=== PATIENT | female | born 1975 | race Caucasian/White ===

== ENCOUNTER 2016-09-16 00:45 | Emergency (ER) | payer OTHER, MEDICAID ==
[~2016-09-16] VITALS: Ht 165.1 cm; Wt 137.9 kg
[~2016-09-16 00:45] MED LIST: ALBU18 IN; LAMO150T2; TRAZ50T; VEN75XRT
[2016-09-16] MEDS ORDERED: methylPREDNISolone SOD SUCC 125 MG/2 ML VL IV ONE (02:30)
[2016-09-16] MEDS ORDERED: diphenhdrAMINE HCL 50 MG/1 ML VL IV ONE (02:30)
[2016-09-16 03:40] VITALS: BP 102/62
== END 2016-09-16 03:58 | disposition home or self-care (01) ==
LOC: ER 00:46
DX: J02.9 Acute pharyngitis, unspecified (principal); T78.40XA Allergy, unspecified, initial encounter
CPT/HCPCS: 96374; 96375; 99284; J1200; J2930

== ENCOUNTER 2017-05-24 08:54 | Emergency (ER) | payer OTHER, MEDICAID ==
[~2017-05-24] VITALS: Ht 162.6 cm; Wt 132.0 kg
[~2017-05-24 08:54] MED LIST changes: +ATOR20TA PO; +CHOL20007 PO; +GEMF600T3 PO; +GLIP-116 PO; +HYDR-4663 PO; -LAMO150T2; +LISI-646 PO; +LITH300T5 PO; +PAR20T PO; -VEN75XRT
[2017-05-24] MEDS ORDERED: SODIUM CHLORIDE 0.9% 1,000 ML IV ONE (09:25)
[2017-05-24 09:31] LABS: Urine Bilirubin Negative (Negative); Urine Blood Negative /uL (Negative); Urine Color Yellow (Yellow); Urine Glucose 3+ mg/dL (Normal); Urine Ketone 1+ (Negative); Urine Mucus FEW (None Seen); Urine Nitrite Negative (Negative); Urine RBC 1 /hpf (0 - 4); Urine Squamous Epithelial Cell MOD /hpf (<5); Urine Urobilinogen Normal (Negative); Urine pH 5.5 (5.0-8.0)
[2017-05-24 09:33] LABS: Eosinophils # (auto) 0.3 uL; Hemoglobin 13.5 g/dL (12.2-16.2); Lymphocytes # (auto) 2.7 uL; Mean Platelet Volume 6.7 fL (6.9-10.8); Monocytes # (auto) 0.7 uL; Monocytes % (auto) 5.2 % (0.0-12.0)
[2017-05-24 09:34] LABS: Basophils # (auto) 0 uL; Basophils % (auto) 0.3 % (0.0-2.0); Lymphocytes % (auto) 19.3 % (10.0-50.0); Mean Corpuscular Hemoglobin 28.5 pg (28.0-32.0); Mean Corpuscular Hgb Conc. 32.9 g/dL (32.0-36.0); Mean Corpuscular Volume 86.6 fL (80.0-100.0); Neutrophils # (auto) 10.2 uL; Neutrophils % (auto) 73.2 % (37.0-80.0); Nucleated Red Blood Cells % 0.1 %; Platelet Count (auto) 477 10^3/uL (140-450)
[2017-05-24 09:47] LABS: Calcium 8.8 mg/dL (8.5-10.1); Magnesium 2.2 mg/dL (1.6-2.6); Potassium 4.2 mmol/L (3.5-5.1)
[2017-05-24 12:08] VITALS: BP 134/71
== END 2017-05-24 13:42 | disposition home or self-care (01) ==
LOC: ER 08:54
DX: O20.0 Threatened abortion (principal); O34.81 Maternal care for other abnormalities of pelvic organs, first trimester; N83.202 Unspecified ovarian cyst, left side; O24.911 Unspecified diabetes mellitus in pregnancy, first trimester; O99.511 Diseases of the respiratory system complicating pregnancy, first trimester; O16.1 Unspecified maternal hypertension, first trimester; Z90.49 Acquired absence of other specified parts of digestive tract; Z90.89 Acquired absence of other organs; Z79.899 Other long term (current) drug therapy; Z88.2 Allergy status to sulfonamides
CPT/HCPCS: 36415; 76801; 76817; 80048; 81001; 83735; 84702; 85025; 96360; 96361; 99285; J7030

== ENCOUNTER 2018-02-11 11:06 | Emergency (ER) | payer OTHER, MEDICAID ==
[~2018-02-11] VITALS: Ht 162.6 cm; Wt 132.0 kg
[~2018-02-11 11:06] MED LIST changes: -HYDR-4663 PO; +HYDR-4683 PO
[2018-02-11 11:19] VITALS: BP 134/63
== END 2018-02-11 12:39 | disposition home or self-care (01) ==
LOC: ER 11:08
DX: G44.209 Tension-type headache, unspecified, not intractable (principal); R42 Dizziness and giddiness; J45.909 Unspecified asthma, uncomplicated; E11.9 Type 2 diabetes mellitus without complications; E78.5 Hyperlipidemia, unspecified; I10 Essential (primary) hypertension; Z90.49 Acquired absence of other specified parts of digestive tract; E66.9 Obesity, unspecified; Z68.42 Body mass index [BMI] 45.0-49.9, adult
CPT/HCPCS: 70450

== ENCOUNTER 2019-04-11 21:02 | Emergency (ER) | payer OTHER, MEDICAID ==
[~2019-04-11] VITALS: Ht 162.6 cm; Wt 131.5 kg
[~2019-04-11 21:02] MED LIST changes: -GEMF600T3 PO; +GEMF600T7 PO; -GLIP-116 PO; +GLIP10TA9 PO; -HYDR-4683 PO; +HYDR-4833 PO
[2019-04-11 21:21] VITALS: BP 98/55
== END 2019-04-11 21:41 | disposition left against medical advice (07) ==
LOC: ER 21:03
DX: R07.9 Chest pain, unspecified (principal); Z53.21 Procedure and treatment not carried out due to patient leaving prior to being seen by health care provider